=== PATIENT | male | born 1990 | race Two or more races ===

== ENCOUNTER 2017-03-17 13:22 | Emergency (ER) | payer SELFPAY ==
[~2017-03-17] VITALS: Ht 177.8 cm; Wt 99.3 kg
[2017-03-17 13:38] VITALS: BP 129/76; Ht 177.8 cm; Wt 99.3 kg
== END 2017-03-17 15:54 | disposition home or self-care (01) ==
LOC: ED 13:22
DX: H00.15 Chalazion left lower eyelid (principal)